=== PATIENT | female | born 1980 | race Caucasian/White ===

== ENCOUNTER 2021-01-10 08:00 | Emergency (ER) | payer OTHER ==
[2021-01-10 08:22] VITALS: BP 103/68; PULSE 85; TEMP 98.1; BMI 38.2
[2021-01-10] MEDS ORDERED: ALBUTEROL SO4 2.5/IPRATROPIUM 0.5 INH SOL 3 ML VIAL.NEB. NEB ONE ×4 (08:41→11:02)
[2021-01-10] MEDS ORDERED: IBUPROFEN 600 MG TABLET (FP) PO ONE ×2 (08:41→08:54)
[2021-01-10 11:40] LABS: PH,URINE 5.5 (5.0-8.0); URINE APPEARANCE CLEAR; URINE BILIRUBIN NEGATIVE (NEGATIVE); URINE COLOR YELLOW; URINE GLUCOSE (UA) NEGATIVE (NEGATIVE); URINE KETONE TRACE (NEGATIVE); URINE LEUK ESTERASE NEGATIVE (NEGATIVE); URINE NITRITE NEGATIVE (NEGATIVE); URINE PROTEIN NEGATIVE (NEGATIVE); URINE UROBILINOGEN 0.2 mg/dL (0.2-1.0)
[2021-01-10 11:42] LABS: HCG,QUALITATIVE URINE Negative
== END 2021-01-10 11:44 | disposition home or self-care (01) ==
LOC: JER 08:00
PROC: 3E0F7GC Introduction of Other Therapeutic Substance into Respiratory Tract, Via Natural or Artificial Opening (ICD-10-PCS; principal; 2021-01-10)
DX: J40 Bronchitis, not specified as acute or chronic (principal)
CPT/HCPCS: 71046-TC-FY; 81003; 84703; 87086; 87804; 87880; 99284-25; C9803; U0003

== ENCOUNTER 2022-05-11 09:16 | Emergency (ER) | payer OTHER ==
[2022-05-11 09:28] VITALS: BP 93/67; PULSE 81; TEMP 98.6; BMI 41.4
[2022-05-11] MEDS ORDERED: KETOROLAC TROMETHAMINE 30 MG/1 ML VIAL IM ONE (10:06)
[2022-05-11] MEDS ORDERED: ACETAMINOPHEN 500 MG TABLET (FP) PO ONE (10:06)
[2022-05-11] MEDS ORDERED: KETOROLAC TROMETHAMINE 30 MG/1 ML VIAL ONE (11:28)
[2022-05-11] MEDS ORDERED: ACETAMINOPHEN 500 MG TABLET (FP) ONE (11:28)
== END 2022-05-11 12:38 | disposition home or self-care (01) ==
LOC: JERFT 09:16
PROC: 3E023GC Introduction of Other Therapeutic Substance into Muscle, Percutaneous Approach (ICD-10-PCS; principal; 2022-05-11)
DX: S99.911A Unspecified injury of right ankle, initial encounter (principal); X50.9XXA Other and unspecified overexertion or strenuous movements or postures, initial encounter
CPT/HCPCS: 73610-TC-RT-FY; 99284-25

== ENCOUNTER 2024-06-15 16:43 | Emergency (ER) | payer OTHER ==
[2024-06-15 17:02] VITALS: BP 115/77; PULSE 72; RESP 17; TEMP 98.4; BMI 41.5
== END 2024-06-15 19:02 | disposition home or self-care (01) ==
LOC: JER 16:43
DX: F32.9 Major depressive disorder, single episode, unspecified (principal)
CPT/HCPCS: 99283-25